=== PATIENT | male | born 1975 ===

== ENCOUNTER 2017-09-06 11:15 | Emergency (ER) | payer MEDICAID, OTHER ==
[~2017-09-06] VITALS: Ht 180.3 cm; Wt 97.7 kg
[2017-09-06 11:16] VITALS: BP 138/92
== END 2017-09-06 13:15 | disposition left against medical advice (07) ==
LOC: ED 13:09
DX: M79.642 Pain in left hand (principal); M79.89 Other specified soft tissue disorders; L53.9 Erythematous condition, unspecified; Z53.21 Procedure and treatment not carried out due to patient leaving prior to being seen by health care provider